=== PATIENT | female | born 1965 | race Caucasian/White ===

== ENCOUNTER → 2019-02-23 | Outpatient (CLI) | payer OTHER ==
[2019-02-23 11:27] LABS: BASO % 1 % (0-3); EOS # 0.2 x10^3/uL (0.0-0.7); EOS % 4 % (0-3); HEMATOCRIT 42.9 % (36.0-47.0); HEMOGLOBIN 15.2 g/dL (12.0-15.5); LYMPH # 1.1 x10^3/uL (1.0-4.8); LYMPH % 28 % (24-48); MEAN CORPUSCULAR HEMOGLOBIN 34 pg (25-35); MEAN CORPUSCULAR HGB CONC 36 g/dL (31-37); MEAN CORPUSCULAR VOLUME 95 fL (79-100); MONO # 0.4 x10^3/uL (0.0-1.1); MONO % 10 % (0-9); NEUT # 2.3 x10^3uL (1.8-7.7); NEUT % 56 % (31-73); PLATELET COUNT 227 x10^3/uL (140-400); RED BLOOD COUNT 4.51 x10^6/uL (3.50-5.40); RED CELL DISTRIBUTION WIDTH 12.7 % (11.5-14.5)
[2019-02-23 11:39] LABS: ALBUMIN 4.3 g/dL (3.4-5.0); ALBUMIN/GLOBULIN RATIO 1.2 (1.0-1.7); GFR 57.6; POTASSIUM 4.4 mmol/L (3.5-5.1); TOTAL BILIRUBIN 0.9 mg/dL (0.2-1.0); TOTAL PROTEIN 7.8 g/dL (6.4-8.2)
[2019-02-23 18:48] LABS: THYROID STIM HORMONE (TSH) 2.787 uIU/mL (0.358-3.740)
== END | disposition home or self-care (01) ==
LOC: PMG 10:06
PROVIDERS: ATTEND Family Medicine
DX: Z13.220 Encounter for screening for lipoid disorders (principal)
CPT/HCPCS: 36415; 80053; 80061; 84443; 85025

== ENCOUNTER → 2019-02-26 | Outpatient (CLI) | payer OTHER ==
--- NOTE | 2019-02-28 19:39 | RAD ---
History: Routine screening. Technique: Bilateral digital mammographic routine views were obtained along with implant displaced views and using CAD - computer aided detection. Comparison: 08/08/2015. Findings: Breast Tissue Density D :The breast tissue is extremely dense, lowering the sensitivity of the examination. There are no suspicious masses, microcalcifications or areas of architectural distortion. Bilateral subpectoral saline implants are redemonstrated. Impression: Dense breast tissue. No suspicious abnormality noted. BI-RADS Category 1: Negative. Normal interval followup. Your mammogram demonstrates that you have dense breast tissue, which could hide abnormalities, and if you have other risk factors for breast cancer that have been identified, you might benefit from supplemental screening tests that may be suggested by your ordering physician. Dense breast tissue, in and of itself, is a relatively common condition. This information is not provided to cause undue concern, but rather to raise your awareness and to promote discussion with your physician regarding the presence of other risk factors, in addition to dense breast tissue. A report of your mammography results will be sent to you and your physician. You should contact your physician if you have any questions or concerns regarding this report. A mammogram does not have 100% sensitivity and therefore a negative imaging study should not delay further work up of a suspicious abnormality. The patient will receive a letter with the results in the mail. Patient information is entered into the reminder system with a target due date for the next screening mammogram. The patient will receive a reminder. "Our facility is accredited by the [employer] Mammography Program." BI-RADS 1 -- negative findings (within normal)
== END | disposition home or self-care (01) ==
LOC: MAMMO 10:26
PROVIDERS: ATTEND Family Medicine
DX: Z12.31 Encounter for screening mammogram for malignant neoplasm of breast (principal); N64.89 Other specified disorders of breast
CPT/HCPCS: 77063; 77067

== ENCOUNTER → 2019-09-06 | Outpatient (CLI) | payer OTHER ==
--- NOTE | 2019-09-06 15:44 | RAD ---
EXAM: Pelvic sonogram. HISTORY: Postmenopausal bleeding. TECHNIQUE: Sonographic imaging of the pelvis was performed. COMPARISON: None. FINDINGS: The uterus measures 8.4 x 4.6 x 3.7 cm. The endometrial stripe measures 8 mm in thickness. The right ovary measures 2.3 x 1.7 x 1.4 cm and demonstrates normal blood flow. The left ovary is not seen due to bowel gas. There is a nabothian cyst within the cervix. There is trace pelvic free fluid. IMPRESSION: 1. Thickened endometrial stripe for the reported postmenopausal status the patient. In the setting of postmenopausal bleeding and a thickened endometrium, tissue sampling may be indicated for definitive diagnosis. 2. Obscured left ovary. The right ovary is unremarkable. 3. Trace nonspecific pelvic free fluid. Electronically signed by: Kati Freeman MD (09/06/2019 3:41 PM) [id number]
== END ==
LOC: US 14:39
PROVIDERS: ATTEND Obstetrics & Gynecology
DX: N95.0 Postmenopausal bleeding (principal); R93.89 Abnormal findings on diagnostic imaging of other specified body structures; Z78.0 Asymptomatic menopausal state
CPT/HCPCS: 76830; 76856

== ENCOUNTER → 2020-01-03 | Outpatient (CLI) | payer OTHER | LOC: LAB 09:50 | PROVIDERS: ATTEND Family Medicine | DX: Z20.828 Contact with and (suspected) exposure to other viral communicable diseases (principal); Z78.9 Other specified health status | CPT/HCPCS: U0003 ==

== ENCOUNTER 2020-04-29 19:31 | Emergency (ER) | payer OTHER ==
[~2020-04-29] VITALS: Ht 172.7 cm; Wt 63.6 kg
[2020-04-29] MEDS ORDERED: AMOXICILLIN/K CLAV 875/125MG TABLET. PO ONE (19:45)
[2020-04-29] MEDS ORDERED: LIDOCAINE/EPI/TETRACAINE TOPICAL GEL 3 ML. TP ONE (19:45)
[2020-04-29] MEDS ORDERED: oxyCODONE/APAP 5/325 1 TAB TABLET PO ONE (19:45)
[2020-04-29] MEDS ORDERED: AMOX1TAB61 PO (19:52)
--- NOTE | 2020-04-29 19:55 | PHYS DOC ---
Adult General Chief Complaint Chief Complaint: ANIMAL BITE HPI HPI Patient is a 55-year-old female who presents with dog bite. 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 States that she get a few small abrasio ns forearms but one laceration on left forearm. Denies any other injuries. States that she is allergic to tetanus vaccinations and can have 1. Review of Systems Review of Systems Review of systems otherwise unremarkable except noted in HPI Physical Exam Physical Exam Constitutional: Well developed, well nourished, no acute distress, non-toxic appearance. [] Cardiovascular:Heart rate regular rhythm, no murmur [] Extremities: No tenderness, no cyanosis, no clubbing, ROM intact, no edema. [] Neurologic: Alert and oriented X 3, normal motor function, normal sensory function, no focal deficits noted. [] Psychologic: Affect normal, judgement normal, mood normal. [] EKG EKG [] Radiology/Procedures Radiology/Procedures Patient has a 2 cm linear laceration on left forearm. Cleaned with sterile water. L ET placed for topical anesthesia. Anesthesia achieved. Repaired with four 4-0 Prolene sutures. Patient tolerated procedure well. Cleaned again. Bandaged. [] Heart Score C/O Chest Pain: No Risk Factors: Risk Factors: DM, Current or recent (<one month) smoker, HTN, HLP, family history of CAD, obesity. Risk Scores: Risk Factors: DM, Current or recent (<one month) smoker, HTN, HLP, family history of CAD, obesity. Course & Med Decision Making Course & Med Decision Making Patient is a 55-year-old female who presents with laceration to the left forearm and multiple skin abrasions from dog bite Vital signs not concerning. Physical exam noted above. Wound inspected and cleaned. L ET placed for topical anesthesia. Suture repaired. Started on Augmentin. Imaging not concerning. Tetanus deferred as patient states she is allergic. Gave wound care instructions for home. Advised to follow-up with primary care in approximately 7 days for wound check and suture removal. Gave strict return precautions to the ED. Family grateful, verbalized understanding and agreed with plan of discharge. [] Dragon Disclaimer Dragon Disclaimer This electronic medical record was generated, in whole or in part, using a voice recognition dictation system. Departure Departure: Impression: Primary Impression: Laceration of forearm Disposition: 01 DC HOME SELF CARE/HOMELESS Condition: GOOD Referrals: NOEL MANLEY MD (PCP) Patient Instructions: Animal Bite, [id number], Sutured Wound Care, [id number] Additional Instructions: Please read the attached information. Please take your antibiotics as prescribed. Please call your primary care physician first thing in the morning to set up a follow-up appointment in 1 week for a wound check and suture removal. Please come back to the ED with new or concerning symptoms as discussed. Scripts Amoxicillin/Potassium Clav (AUGMENTIN 875-125 TABLET) 1 Each Tablet 1 TAB PO BID for dog bite for 7 Days, #14 TAB 0 Refills Prov: BLOSSOM PEREZ MD 04/29/20 BLOSSOM PEREZ MD Apr 29, 2020 19:55
[2020-04-29 20:12] VITALS: BP 154/95
--- NOTE | 2020-04-29 22:20 | RAD ---
EXAM: AP and lateral views of the left forearm DATE: 04/29/2020 7:46 PM INDICATION: Reason: dog bite / Spl. Instructions: / History: COMPARISON: No Prior FINDINGS/ IMPRESSION: Soft tissue swelling about the left forearm without definite retained radiopaque foreign body or soft tissue gas. No acute fracture or dislocation. Electronically signed by: Lucien Elkins MD (04/29/2020 10:17 PM) ANGELA
== END 2020-04-29 20:25 | disposition home or self-care (01) ==
LOC: ER 19:31
DX: S51.812A Laceration without foreign body of left forearm, initial encounter (principal); W54.0XXA Bitten by dog, initial encounter; Y93.89 Activity, other specified; Y92.89 Other specified places as the place of occurrence of the external cause; Y99.8 Other external cause status
CPT/HCPCS: 12001; 73090; 99283